=== PATIENT | male | born 1975 ===

== ENCOUNTER 2018-12-14 05:07 | Day surgery (SDC) | payer OTHER ==
[~2018-12-14 05:07] MED LIST: AVAPRO150 MG PO; GLIMEPIRIDE4 MG PO; MESTINON60 MG PO; SIMVASTATIN20 MG PO
[2018-12-14] MEDS ORDERED: COLACE100 MG PO (09:45)
[2018-12-14] MEDS ORDERED: PERCOCET 5-3251 EACH PO (09:45)
== END 2018-12-14 16:46 | disposition home or self-care (01) ==
LOC: CIR.AMB 05:07
DX: K60.3 Anal fistula (principal)